=== PATIENT | female | born 1990 | race Caucasian/White ===

== ENCOUNTER 2023-03-12 16:49 | Outpatient (OUT) | payer BC, SELFPAY ==
--- NOTE | 2023-03-12 16:55 | US_ITS ---
[address] [address] Patient Name: AMERICA TIJERINA MRN: [id number] date: 1990 Sex: F Assigned Patient Location: US Current Patient Location: US Accession/Order Number: [id number] Exam Date: 03/12/2023 16:55 Report Date: 03/13/2023 15:15 At the request of: AMADOR HARRIS Procedure: US OB anatomy EXAMINATION: US OB anatomy, US OB cervical length HISTORY: Second trimester Z33.1 COMPARISON: No relevant comparison available. TECHNIQUE: Transabdominal sonographic examination was performed for obstetrical and evaluation. FINDINGS: Number: 1 Heart Rate: 162.4 bpm H.B. /min Amniotic Fluid Volume: Subjectively normal Placental Location: POSTERIOR with lower margin 3.3 cm from os Cervix Length: 4.5 cm, closed. ANATOMY: Normal Structures -cerebellum, choroid plexus, cisterna magna, lateral cerebral ventricles, orbits, midline falx, hard palate, four-chamber heart, RVOT, LVOT, stomach, kidneys, bladder, umbilical cord insertion into abdomen, three-vessel cord, cervical spine, thoracic spine, lumbar spine, sacral spine, right upper extremity, left upper extremity, right lower extremity, left lower extremity. SUBOPTIMALLY SEEN: None ABNORMALITIES: None BIOMETRY: BPD: 4.6 cm 20 weeks 0 days HC: 17.9 cm 20 weeks 3 days AC: 16.3 cm 21 weeks 3 days FL: 3.1 cm 19 weeks 5 days EFW:360.5 grams; 35% FL/AC: 19.1 FL/BPD: 67.1 HC/AC: 1.1 GESTATIONAL AGE: Age by EDC: 20 weeks 5 days JEFFERSON by EDC: 07/25/2023 Age by current US: 20 weeks 3 days JEFFERSON by current US: 07/27/2023 IMPRESSION: 1. Single live intrauterine with growth detailed above. Electronically authenticated by: FARNAZ ARANGO Date: 03/13/2023 15:15
== END 2023-03-12 16:50 ==
PROVIDERS: PCP Family Medicine
DX: Z34.92 Encounter for supervision of normal pregnancy, unspecified, second trimester (principal); Z3A.20 20 weeks gestation of pregnancy
CPT/HCPCS: 76805; 76817

== ENCOUNTER 2023-04-14 15:14 | Outpatient (OUT) | payer BC, SELFPAY ==
[2023-04-14 09:43] LABS: Basophils Percent Auto 0.4 % (0.2-2.0); Eosinophils Percent Auto 0.5 % (0.9-7.0); Hematocrit 39.4 % (36.0-48.0); Hemoglobin 13.2 g/dL (12.0-16.0); Immature Granulocytes Abs Auto 0.03 10^3/uL (0.00-0.03); Immature Granulocytes Pct Auto 0.4 % (0.0-0.5); Lymphocytes Absolute Auto 1.4 10^3/uL (1.2-3.8); Lymphocytes Percent Auto 18.1 % (20.5-60.0); Mean Corpuscular HGB Conc 33.5 g/dL (29.9-35.2); Mean Corpuscular Hemoglobin 30.7 pg (26.7-34.0); Mean Corpuscular Volume 91.6 fL (81.0-99.0); Monocytes Absolute Auto 0.5 10^3/uL (0.3-0.8); Monocytes Percent Auto 5.8 % (1.7-12.0); Neutrophils Percent Auto 74.8 % (43.0-75.0); Platelet Count 211 10^3/uL (150-450); Red Cell Distribution Width 13.1 % (11.0-15.0)
[2023-04-14 10:34] LABS: Glucose 1 Hour 153 mg/dL
== END 2023-04-14 15:15 | disposition home or self-care (01) ==
LOC: LAB 04-21 15:14
PROVIDERS: PCP Family Medicine; Visit Provider Obstetrics & Gynecology
DX: Z34.92 Encounter for supervision of normal pregnancy, unspecified, second trimester (principal)
CPT/HCPCS: 36415; 82950; 85025

== ENCOUNTER 2023-04-24 08:51 | Outpatient (OUT) | payer BC, SELFPAY ==
[2023-04-24 09:29] LABS: Glucose Fasting 89 mg/dL (74-106)
[2023-04-24 11:05] LABS: Glucose 1 Hour 152 mg/dL
[2023-04-24 11:59] LABS: Glucose 2 Hour 102 mg/dL
[2023-04-24 13:07] LABS: Glucose 3 Hour 55 mg/dL
== END 2023-04-24 08:52 | disposition home or self-care (01) ==
LOC: LAB 08:51
PROVIDERS: PCP Family Medicine; Visit Provider Obstetrics & Gynecology
DX: R73.09 Other abnormal glucose (principal)
CPT/HCPCS: 36415; 82951; 82952

== ENCOUNTER 2023-06-01 15:16 | Outpatient (OUT) | payer BC, SELFPAY ==
--- NOTE | 2023-06-01 15:16 | US_ITS ---
[address] [address] Patient Name: AMERICA TIJERINA MRN: [id number] date: 1990 Sex: F Assigned Patient Location: US Current Patient Location: US Accession/Order Number: [id number] Exam Date: 06/01/2023 15:20 Report Date: 06/01/2023 17:06 At the request of: AMADOR HARRIS Procedure: US OB growth EXAMINATION: US OB growth HISTORY: SIZE INCONSISTENT WITH DATES COMPARISON: No relevant comparison available. FINDINGS: Heart Rate: 138.0 bpm Amniotic Fluid Volume: 14.4 cm Number: 1.0 Position: Cephalic presentation, longitudinal lie Maximum Vertical Pocket: 5.4 cm cm 2.1 cm cm 3.7 cm cm 3.1 cm cm BIOMETRY: BPD: 8.3 cm cm; 33 weeks 3 days; 74% HC: 31.3 cmcm; 35 weeks 0 days, 83% AC: 27.7 cm cm; 31 weeks 5 days, 33% FL: 6.2 cm cm; 32 weeks 0 days; 30.6 % % EFW: 1945.3 grams, 4 lbs. 5 oz., 40% FL/AC: 22.3 FL/BPD: 74.5 HC/AC: 1.1 GESTATIONAL AGE: Age by EDC: 32 weeks 2 days JEFFERSON by EDC: 07/25/2023 Age by US: 33 weeks 0 days JEFFERSON by US: 07/20/2023 US/US OB growth IMPRESSION: Normal interval growth Electronically authenticated by: EDUARDO HANNA Date: 06/01/2023 17:06
== END 2023-06-01 15:17 | disposition home or self-care (01) ==
LOC: US 15:16
PROVIDERS: PCP Family Medicine; Visit Provider Obstetrics & Gynecology
DX: O26.843 Uterine size-date discrepancy, third trimester (principal); Z3A.32 32 weeks gestation of pregnancy
CPT/HCPCS: 76816

== ENCOUNTER 2023-06-30 20:36 | Outpatient (REF) | payer BC, SELFPAY | END 2023-06-30 20:37 | disposition home or self-care (01) | LOC: LAB 20:36 | PROVIDERS: PCP Family Medicine; Visit Provider Obstetrics & Gynecology | DX: Z34.93 Encounter for supervision of normal pregnancy, unspecified, third trimester (principal) | CPT/HCPCS: 87081 ==

== ENCOUNTER 2023-07-27 04:54 | Inpatient (IN) | payer BC, SELFPAY ==
[2023-07-27] VITALS (47 sets, daily range): BP systolic 110–159; BP diastolic 60–93; PULSE 68–107; RESP 14–18; TEMP 36.6–37.2
[2023-07-27 06:47] LABS: Hematocrit 36.7 % (36.0-48.0); Hemoglobin 12.8 g/dL (12.0-16.0); Mean Corpuscular HGB Conc 34.9 g/dL (29.9-35.2); Mean Corpuscular Hemoglobin 31.5 pg (26.7-34.0); Mean Corpuscular Volume 90.4 fL (81.0-99.0); Mean Platelet Volume 11.4 fL (9.5-13.5); Platelet Count 202 10^3/uL (150-450); Red Blood Count 4.06 10^6/uL (4.20-5.40); Red Cell Distribution Width 12.9 % (11.0-15.0); White Blood Count 8.3 10^3/uL (4.0-11.0)
[2023-07-27 06:58] LABS: Amphetamine Screen Urine NEGATIVE (NEGATIVE); Barbiturates Screen Urine NEGATIVE (NEGATIVE); Benzodiazepines Screen Urine NEGATIVE (NEGATIVE); Buprenorphine Screen Urine NEGATIVE (NEGATIVE); Cannabinoid Screen Urine NEGATIVE (NEGATIVE); Cocaine Screen Urine NEGATIVE (NEGATIVE); Methadone Screen Urine NEGATIVE (NEGATIVE); Methamphetamines Screen Urine NEGATIVE (NEGATIVE); Opiate Screen Urine NEGATIVE (NEGATIVE); Oxycodone Screen Urine NEGATIVE (NEGATIVE); Phencyclidine Screen Urine NEGATIVE (NEGATIVE); Tricyclic Antidepressant Urine NEGATIVE (NEGATIVE)
[2023-07-27] MEDS: 0.9 % SODIUM CHLORIDE 1,000 ML 125 ML IV ×2 (08:50→14:44)
[2023-07-27] MEDS: OXYTOCIN/0.9 % SODIUM CHLORIDE 10 UNITS/500 ML PLAST..BAG 6 UNIT IV (08:52)
[2023-07-27] MEDS: AMPICILLIN SODIUM 2,000 MG in 0.9 % SODIUM CHLORIDE 100 ML 200 MG IV (08:58)
[2023-07-27] MEDS: FENTANYL CITRATE/PF 100 MCG/2 ML VIAL EPIDURAL (14:00)
--- NOTE | 2023-07-27 15:19 | PC.NURSE ---
tearful sve unchanged, Azeb scale tester gives fentanyl and then lidocaine per epidural
[2023-07-27] MEDS: LIDOCAINE HCL 2% PF 100 MG/5 ML VIAL INJ ×2 (15:22)
--- NOTE | 2023-07-27 15:24 | PC.NURSE ---
lt tilt, feels pressure after two dosses of lidocaine and fentanyl per flare breaker
[2023-07-27] MEDS: OXYTOCIN/0.9 % SODIUM CHLORIDE 20 UNITS/1,000 ML PLAST..BAG 125 UNIT IV (15:55)
--- NOTE | 2023-07-27 16:04 | PM.OBPRCVD ---
Procedure Intrapartal events: None Induction method: per pitocin protocol Delivery augmentation: rupture of membranes and pitocin Delivery monitor: external FHT and external uterine Route of delivery: Episiotomy Description: left mediolateral Laceration description: periurethral - 2nd degree Delivery repair: Vicryl Estimated blood loss (mL): 300 Anesthesia type: Epidural Disposition: floor Delivery date: 07/27/23 Gender: male presentation: vertex Placental delivery description: Spontaneous cord description: 3 Vessels
[2023-07-27] MEDS: IBUPROFEN 600 MG TABLET PO ×2 (16:17→23:55)
[2023-07-27] MEDS: ACETAMINOPHEN 325 MG TABLET 650 MG PO (20:08)
[2023-07-28] MEDS: ACETAMINOPHEN 325 MG TABLET 650 MG PO (05:00)
[2023-07-28 06:53] LABS: Basophils Percent Auto 0.3 % (0.2-2.0); Eosinophils Percent Auto 0.3 % (0.9-7.0); Hematocrit 34.5 % (36.0-48.0); Hemoglobin 11.7 g/dL (12.0-16.0); Immature Granulocytes Abs Auto 0.04 10^3/uL (0.00-0.03); Immature Granulocytes Pct Auto 0.3 % (0.0-0.5); Lymphocytes Absolute Auto 2.1 10^3/uL (1.2-3.8); Lymphocytes Percent Auto 17.8 % (20.5-60.0); Mean Corpuscular HGB Conc 33.9 g/dL (29.9-35.2); Mean Corpuscular Hemoglobin 31.2 pg (26.7-34.0); Mean Platelet Volume 10.4 fL (9.5-13.5); Monocytes Absolute Auto 0.8 10^3/uL (0.3-0.8); Monocytes Percent Auto 7.2 % (1.7-12.0); Neutrophils Absolute Auto 8.6 10^3/uL (1.4-6.5); Neutrophils Percent Auto 74.1 % (43.0-75.0); Platelet Count 181 10^3/uL (150-450); Red Blood Count 3.75 10^6/uL (4.20-5.40); White Blood Count 11.7 10^3/uL (4.0-11.0)
--- NOTE | 2023-07-28 07:34 | W.PC.ACHO ---
Registration Status: ADM IN Primary Language: Swiss Preferred Language: Swiss Active Medications Generic Name Dose Route Start Last Admin Trade Name Jacqui PRN Reason Stop Dose Admin Acetaminophen 650 mg 07/27/23 16:01 07/28/23 05:00 Acetaminophen 325 Mg Tablet PO 650 mg Q6H PRN Administration Mild Pain Al Hydroxide/Mg Hydroxide 2,400 mg 07/27/23 16:01 Magnesium Hydroxide 2,400 Mg/10 Ml Oral.Susp PO Q6H PRN Dyspepsia Benzocaine/Menthol 1 applic 07/27/23 16:01 Benzocaine/Menthol 85 Gram [place] Bottle TOPICAL Q2H PRN Pain Diphtheria/Pertussis/Tetanus Vacc 0.5 ml 07/29/23 09:00 Adacel Diph,Pertuss(Acell),Tet Vac/Pf 0.5 Ml Adult Syringe IM 07/29/23 09:01 .ONCE ONE Docusate Sodium 100 mg 07/28/23 09:00 Docusate Sodium 100 Mg Capsule PO BID OMER Sodium Chloride 1,000 mls @ 125 mls/hr 07/27/23 06:30 07/27/23 15:50 Sodium Chloride 0.9% 1,000 Ml IV Infused .Q8H OMER Infusion Ibuprofen 600 mg 07/27/23 16:01 07/27/23 23:55 Ibuprofen 600 Mg Tablet PO 600 mg Q6H PRN Administration Moderate Pain Measles/Mumps/Rubella Vaccine Live 0.5 ml 07/29/23 09:00 Measles,Mumps,Rubella Vacc/Pf 0.5 Ml Vial SQ 07/29/23 09:01 .ONCE ONE Methylergonovine Maleate 0.2 mg 07/27/23 06:21 Methylergonovine Maleate 0.2 Mg Tablet PO 07/28/23 16:00 Q4H PRN Uterine Contractility/Contract Methylergonovine Maleate 0.2 mg 07/27/23 16:08 Methylergonovine Maleate 0.2 Mg/Ml Ampule IM 07/28/23 16:00 ONCE PRN Uterine Contractility/Contract Misoprostol 600 mcg 07/27/23 06:21 Misoprostol 100 Mcg Tablet PO 07/28/23 16:00 ONCE PRN Uterine Bleeding Misoprostol 800 mcg 07/27/23 06:21 Misoprostol 100 Mcg Tablet SL 07/28/23 16:00 ONCE PRN Uterine Bleeding Misoprostol 1,000 mcg 10/23/23 06:21 Misoprostol 100 Mcg Tablet NH 07/28/23 16:00 ONCE PRN Uterine Bleeding Ondansetron HCl 4 mg 07/27/23 06:21 Ondansetron Pf 4 Mg/2 Ml Vial IV Q6H PRN Nausea And Vomiting Ondansetron HCl 4 mg 07/27/23 06:21 Ondansetron 4 Mg Rapdis Tablet SL Q6H PRN Nausea And Vomiting Senna 17.2 mg 07/27/23 20:00 Sennosides 8.6 Mg Tablet PO QHS PRN Constipation Simethicone 80 mg 07/27/23 16:01 Simethicone 80 Mg Tab.Chew PO QID PRN Abdominal Distention Temazepam 15 mg 07/27/23 16:01 Temazepam 15 Mg Capsule PO QHS PRN Sleep Witch Leslie/Glycerin 1 pad 07/27/23 16:01 Glycerin/Witch Leslie Pads TOPICAL Q2H PRN Pain Diet Category Date Time Status Regular Consistency Diet Diet 07/27/23 16:01 Active Neurology Patient orientation (short person,place,time list) Respiratory Oxygen Delivery Method Room Air
--- NOTE | 2023-07-28 08:17 | PM.OBDS ---
DS: Providers Provider Date of admission: 07/27/23 04:54 Primary care physician: Heather Farooq MD Admitting clinician: Fer Rowley Attending physician on admission: Fer Rowley Consults: 07/27/23 Consult to Anesthesiology Routine Consulting Provider: Janine Arroyo Reason for consultation: Epidural Attending physician on discharge: MITZI JULIAN Discharging clinician: MITZI JULIAN Anticipated date of discharge: 07/28/23 DS: Diagnosis Discharge Diagnosis (1) Term : OB - DS: Summary Complications complications: none Infant Delivery method: spontaneous vaginal delivery Gender: male Time Spent with Patient Time attestation: Total time spent providing and/or coordinating discharge services: Time spent: less than 30 minutes Exam Constitutional Vital Signs, click to edit/add: Last Vital Signs Temp 97.8 F 07/27/23 23:50 Pulse 71 07/27/23 23:50 Resp 14 07/27/23 17:50 BP 110/63 07/27/23 23:50 O2 Del Method Room Air 07/27/23 23:50 Common normals: no apparent distress General appearance: cooperative and comfortable Orientation/consciousness: Yes awake, Yes oriented to person, Yes oriented to place and Yes oriented to time HENMT Common normals: normocephalic Eye Common normals: EOMs intact bilaterally Neck & C-Spine Common normals: full ROM Lymph Lymphatic: no lymphadenopathy noted Chest Common normals: inspection of chest normal Respiratory Common normals: normal respiratory effort Cardio Common normals: regular rate, regular rhythm and no murmurs GI Common normals: Normal to inspection, nondistended, normoactive bowel sounds present Palpation: soft Common normals: no CVA tenderness Back & Pelvis Common normals: no CVA tenderness Extremity Common normals: normal to inspection Neuro Common normals: oriented x3 and moves all extremities Psych Common normals: mental status grossly normal DS: Data Data Completed and Pending Labs on day of discharge: Labs from last 24 hours 07/28/23 07/27/23 06:25 05:50 WBC 11.7 H RBC 3.75 L Hgb 11.7 L Hct 34.5 L MCV 92.0 MCH 31.2 MCHC 33.9 RDW 13.0 Plt Count 181 MPV 10.4 Neut % (Auto) 74.1 Lymph % (Auto) 17.8 L [place] % (Auto) 7.2 Eos % (Auto) 0.3 L Baso % (Auto) 0.3 Neut # (Auto) 8.6 H Lymph # (Auto) 2.1 [place] # (Auto) 0.8 Eos # (Auto) 0.0 Baso # (Auto) 0.0 Abs Immat Gran (auto) 0.04 H Imm/Tot Granulo (auto) 0.3 Blood Type A Positive Antibody Screen Negative Discharge Plan Discharge Disposition: Home, Self-Care Discharge Medications: New Dermoplast (with menthol) 20-0.5 % Aerosol 1 spray topical Q2H PRN (Reason: Pain) Qty: 56 0RF docusate sodium 100 mg Capsule 100 mg PO BID PRN (Reason: constipation) 30 Days Qty: 30 2RF A.E.R. Witch Leslie 12.5-50 % Pads, Medicated 1 pad topical Q2H PRN (Reason: Pain) Qty: 40 1RF ibuprofen 800 mg tablet 800 mg PO Q8H PRN (Reason: Moderate Pain) Qty: 30 1RF Continued [id number] 1 mg tablet PO Forms: Portal Instructions
[2023-07-28] MEDS: DOCUSATE SODIUM 100 MG CAPSULE PO (08:59)
[2023-07-28] MEDS: IBUPROFEN 600 MG TABLET PO (08:59)
[2023-07-28 09:00] VITALS: RESP 16; TEMP 36.6
[2023-07-28 09:05] VITALS: BP 118/69; PULSE 74
== END 2023-07-28 18:35 | disposition home or self-care (01) | DRG 807 ==
PROVIDERS: Admitting Provider Obstetrics & Gynecology; PCP Family Medicine; Visit Provider Obstetrics & Gynecology
DX: O71.82 Other specified trauma to perineum and vulva (principal); Z37.0 Single live birth; Z3A.39 39 weeks gestation of pregnancy
CPT/HCPCS: 36415; 59050; 59410; 80307; 85025; 85027; 86850; 86900; 86901; 96365; 96366; 96368; 96375; 96376

== ENCOUNTER 2023-07-30 08:14 | Outpatient (OUT) | payer BC, SELFPAY ==
[2023-07-30 12:31] VITALS: BP 126/87; PULSE 98; RESP 18; TEMP 36.8; O2SAT 97
== END 2023-07-30 11:20 | disposition home or self-care (01) ==
LOC: FBCO 08:17
PROVIDERS: PCP Family Medicine; Visit Provider Obstetrics & Gynecology
DX: Z39.2 Encounter for routine postpartum follow-up (principal)

== ENCOUNTER 2023-08-12 08:22 | Outpatient (OUT) | payer BC, SELFPAY | END 2023-08-12 08:23 | disposition home or self-care (01) | LOC: FBCO 08:25 | PROVIDERS: PCP Family Medicine; Visit Provider Obstetrics & Gynecology | DX: Z39.1 Encounter for care and examination of lactating mother (principal) ==

== ENCOUNTER 2024-02-15 19:32 | Outpatient (REF) | payer BC, SELFPAY ==
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
== END 2024-02-15 19:33 | disposition home or self-care (01) ==
LOC: LAB 19:32
PROVIDERS: PCP Family Medicine; Visit Provider Obstetrics & Gynecology
DX: Z01.419 Encounter for gynecological examination (general) (routine) without abnormal findings (principal)
CPT/HCPCS: 87624; G0145

== ENCOUNTER 2025-02-21 07:58 | Outpatient (OUT) | payer BC, SELFPAY ==
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
[2025-02-21 08:23] LABS: Basophils Percent Auto 0.3 % (0.2-2.0); Eosinophils Absolute Auto 0.1 10^3/uL (0.0-0.7); Eosinophils Percent Auto 1.7 % (0.9-7.0); Hematocrit 41.5 % (36.0-48.0); Immature Granulocytes Abs Auto 0.01 10^3/uL (0.00-0.03); Immature Granulocytes Pct Auto 0.2 % (0.0-0.5); Lymphocytes Absolute Auto 2.2 10^3/uL (1.2-3.8); Mean Corpuscular HGB Conc 33.7 g/dL (29.9-35.2); Mean Corpuscular Hemoglobin 30.7 pg (26.7-34.0); Mean Platelet Volume 9.3 fL (9.5-13.5); Monocytes Absolute Auto 0.5 10^3/uL (0.3-0.8); Monocytes Percent Auto 7.8 % (1.7-12.0); Neutrophils Absolute Auto 3.6 10^3/uL (1.4-6.5); Platelet Count 291 10^3/uL (150-450); Red Blood Count 4.56 10^6/uL (4.20-5.40); Red Cell Distribution Width 12.3 % (11.0-15.0); White Blood Count 6.4 10^3/uL (4.0-11.0)
[2025-02-21 09:34] LABS: Alanine Aminotransferase 17 U/L (14-59); Albumin Globulin Ratio 1.3; Albumin Level 3.9 g/dL (3.4-5.0); Alkaline Phosphatase 46 U/L (46-116); Anion Gap 14.9; Aspartate Amino Transferase 9 U/L (15-37); BUN Creatinine Ratio 14.3; Bilirubin Total 0.7 mg/dL (0.2-1.0); Calcium 8.5 mg/dL (8.5-10.1); Carbon Dioxide 24.9 mmol/L (21.0-32.0); Chloride 105 mmol/L (98-107); Estimated GFR (African America >60 (>=60 mL/min/1.73m^2); Estimated GFR (Non-African Ame >60 (>=60 mL/min/1.73m^2); Glucose 101 mg/dL (74-106); Potassium 3.8 mmol/L (3.5-5.1); Sodium 141 mmol/L (136-145); Thyroid Stimulating Hormone 2.395 uIU/mL (0.358-3.740); Total Protein 6.9 g/dL (6.4-8.2)
== END 2025-02-21 07:59 | disposition home or self-care (01) ==
LOC: LAB 07:58
PROVIDERS: PCP Family Medicine; Visit Provider Family Medicine
DX: Z00.00 Encounter for general adult medical examination without abnormal findings (principal); R53.83 Other fatigue
CPT/HCPCS: 36415; 80053; 84443; 85025

== ENCOUNTER 2025-03-02 12:22 | Outpatient (REF) | payer BC, SELFPAY ==
--- OUTSIDE RECORDS SUMMARY | 2025-03-02 08:50 | XMS_ITS | Encounter Summary ---
Author Organization [facility] Address [address] [place] [address] Care Team Providers Care Detasseling Crew Supervisor Name Role Phone Heather Farooq MD Primary Care Provider [phone] Reason for Visit * Reason Comments Well Women Visit Encounter Details Date Type Department Care Team (Late st Contact Info) Description 03/02/2025 8:50 AM EDT Office Visit [facility] [address] [place] [phone] Fer Rowley [address] [place] [address] Well woman exam with routine gynecological exam Social History Tobacco Use Types Packs/Day Years Used Date Smoking Tobacco: Never Smokeless Tobacco: Never Alcohol Use Standard Drinks/Week Comments Never 0 (1 standard drink = 0.6 oz pur e alcohol) Comments Unknown Sex and Gender Information Value Date Recorded Sex Assigned at Not on file Legal Sex Female 11:47 PM EDT Gender Identity Not on file Sexual Orientation Not on file documented as of this encounter Last Filed Vital Signs Vital Sign Reading Time Taken Comments Blood Pressure 120/68 03/02/2025 8:57 AM EDT Pulse - - Temperature - - Respiratory Rate - - Oxygen Saturation - - Inhaled Oxygen Concentration - - Weight 64.5 kg (142 lb 1.9 oz) 03/02/2025 8:57 A M EDT Height - - Body Mass Index 22.26 09/07/2023 2:15 PM EST documented in this encounter Plan of Treatment Upcoming Encounters Date Type Department Care Team (Late st Contact Info) Description 03/08/2026 8:30 AM EDT Office Visit [facility] [address] [place] [phone] Fer Rowley, [facility] [address] Scheduled Orders Name Type Priority Associated Diagnoses Orde r Schedule Pap Smear Pathology and Cytology Routine Well woman exam with routine gynecological exam Ordered: 03/02/2025 HPV DNA probe, amplified Microbiology Routine Well woman exam with routine gynecological exam Ordered: 03/02/2025 documented as of this encounter Procedures Procedure Name Priority Date/Time Associated Diagnosis Comments PAP SMEAR Routine 02/15/2024 12:00 AM EDT documented in this encounter Results * Pap Smear (02/15/2024 12:00 AM EDT) Swab Cervical swab / Unknown us Fer Rowley DO LAB CYTOLOGY ORDERABLES Final Re sult EXTERNAL LAB documented in this encounter Visit Diagnoses Diagnosis Well woman exam with routine gynecological exam Routine gynecological examination documented in this encounter Care Teams Detasseling Crew Supervisor Relationship Specialty Start Date End Date Heather Farooq MD [address] [facility] [place] [address] PCP - General Family Medicine 03/18/23 documented as of this encounter
--- OUTSIDE RECORDS SUMMARY | 2025-03-02 12:24 | XMS_ITS | Encounter Summary ---
Author Organization [facility] Address [address] [place] [address] Care Team Providers Care Foil Wrapper Name Role Phone Heather Farooq MD Primary Care Provider [phone] Encounter Details Date Type Department Care Team (Late Contact Info) Description 03/02/2025 Bamboo flowsheet [facility] [address] [place] [address] Fer Rowley [address] [place] [id number] Social History Tobacco Use Types Packs/Day Years [...] on file documented as of this encounter Plan of Treatment Upcoming Encounters Date Type Department Care Team (Late Contact Info) Description 03/08/2026 8:30 AM EDT Office Visit [facility] [address] [place] [address] Fer Rowley [address] [place] [address] documented as of this encounter Visit Diagnoses Not on filedocumented in this encounter Care Teams Foil Wrapper Relationship Specialty Start Date End Date Heather Farooq MD [address] [facility] [place] [phone] PCP - General Family Medicine 03/18/23 documented as of this encounter
--- OUTSIDE RECORDS SUMMARY | 2025-03-02 12:24 | XMS_ITS | Clinical Summary ---
Author Organization [facility] Address [address] [facility] [place] [address] Care Team Providers Care Loftsman Name Role Phone Heather Farooq MD Primary Care Provider [phone] Allergies No known active allergies Medications Levonorgestrel (Mirena, 52 MG,) 20 MCG/DAY intrauterine device by Intrauterine route Active Hospital, Clinic, or Other Facility Administered Medication Ordered Dose Route Frequency Start Date End Date Status Levonorgestrel intrauterine device 52 mgIndications:Encounter for IUD insertion 52 mg IU Continuous 09/09/2023 Active Encounters Date Type Department Care Team Description 03/02/2025 8:50 AM EDT Office Visit [facility] [address] [place] [address] Fer Rowley DO Well woman exam with routine gynecological exam 03/02/2025 Bamboo flowsheet [facility] [address] [place] [address] Fer Rowley DO from Last 3 Months Social History Tobacco Use Types Packs/Day Years Used Date Smoking Tobacco: Never Smokeless Tobacco: Never Tobacco Cessation:Counseling Given: Not Answered Alcohol Use Standard Drinks/Week Comments Never 0 (1 standard drink = 0.6 oz pur e alcohol) Comments Unknown Sex and Gender Information Value Date Recorded Sex Assigned at Not on file Legal Sex Female 11:47 PM EDT Gender Identity Not on file Sexual Orientation Not on file Last Filed Vital Signs Vital Sign Reading Time Taken Comments Blood Pressure 120/68 03/02/2025 8:57 AM EDT Pulse - - Temperature - - Respiratory Rate - - Oxygen Saturation - - Inhaled Oxygen Concentration - - Weight 64.5 kg (142 lb 1.9 oz) 03/02/2025 8:57 A M EDT Height 170.2 cm (5' 7 ) 09/07/2023 2:15 PM EST Body Mass Index 22.26 09/07/2023 2:15 PM EST Plan of Treatment Upcoming Encounters Date Type Department Care Team (Late st Contact Info) Description 03/08/2026 8:30 AM EDT Office Visit [facility] [address] [phone] Fer Rowley DO [address] [place] [address] [place] [address] Health Maintenance Due Date Last Done Comments Influenza Vaccine (Season Ended) 2025 Cervical Cancer Screening 02/14/2029 HPV/Cotest 02/14/2029 Pap Smear 02/14/2029 02/15/2024, 02/10/2023 Procedures Procedure Name Priority Date/Time Associated Diagnosis Comments PAP SMEAR Routine 02/15/2024 12:00 AM EDT from Last 3 Months or Most Recently Relevant to Health Maintenance Results * Pap Smear (02/15/2024 12:00 AM EDT) Swab Cervical swab / Unknown Fer Rowley DO LAB CYTOLOGY ORDERABLES Final Re sult EXTERNAL LAB from Last 3 Months or Most Recently Relevant to Health Maintenance Insurance [address] [place] [id number] [employer] Care Teams Loftsman Relationship Specialty Start Date End Date Heather Farooq MD [address] [place] [phone] PCP - General Family Medicine 03/18/23
--- OUTSIDE RECORDS SUMMARY | 2025-03-02 12:24 | XMS_ITS | Encounter Summary ---
Author Organization [facility] Address [address] [place] [address] [place] [address] Care Team Providers Care Synthetic Plasterer Name Role Phone Heather Farooq MD Primary Care Provider [phone] Encounter Details Date Type Department Care Team (Late Contact Info) Description 05/22/2023 Abstract [facility] [address] [address] Kalpana Carroll LPN Social History Tobacco Use Types Packs/Day Years Used Date Smoking Tobacco: Never Smokeless Tobacco: Never Alcohol Use Standard Drinks/Week Comments Never 0 (1 standard drink = 0.6 oz pur e alcohol) Comments Yes Sex and Gender Information Value Date Recorded Sex Assigned at Not on file Legal Sex Female 11:47 PM EDT Gender Identity Not on file Sexual Orientation Not on file COVID-19 Exposure Response Date Recorded In the last 10 days, have yo u been in contact with someone who was confirmed or suspected to have Coronavirus/COVID-19? No / Unsure 05/25/2023 8:01 PM EDT documented as of this encounter Plan of Treatment Upcoming Encounters Date Type Department Care Team (Late st Contact Info) Description 03/08/2026 8:30 AM EDT Office Visit [facility] [address] [place] [address] Fer Rowley [address] [place], [place] [id number] documented as of this encounter Visit Diagnoses Not on filedocumented in this encounter Care Teams Synthetic Plasterer Relationship Specialty Start Date End Date Heather Farooq MD [address] [place] [address] PCP - General Family Medicine 03/18/23 documented as of this encounter
[2025-03-06 10:08] LABS: Age Gdln ACOG Testing Note (.); HPV Aptima Negative (Negative); IGP, Aptima HPV, rfx 16/18,45 Note (.)
== END 2025-03-02 12:23 | disposition home or self-care (01) ==
LOC: LAB 12:22
PROVIDERS: PCP Family Medicine; Visit Provider Obstetrics & Gynecology
DX: Z01.419 Encounter for gynecological examination (general) (routine) without abnormal findings (principal)
CPT/HCPCS: 87624; 88175